=== PATIENT | female | born 1990 | race Caucasian/White ===

== ENCOUNTER 2020-11-15 12:24 | Emergency (ER) | payer OTHER ==
[~2020-11-15] VITALS: Ht 162.6 cm; Wt 82.7 kg
[~2020-11-15 12:24] MED LIST: IBUP-1222 PO; NONE at this time; PREN1TAB60 PO
[2020-11-15] MEDS ORDERED: FLUORESCEIN OPHTHALMIC 1 MG STRIP ONE (13:20)
[2020-11-15] MEDS ORDERED: PROPARACAINE OPHTH 0.5%, 15ML ONE (13:20)
--- NOTE | 2020-11-15 13:36 | NUR ---
WERNER AT [facility] FOR ASSESSMENT. PT WITH NO NEURO DEFICITS. 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 VSS.
[2020-11-15] MEDS ORDERED: FLUORESCEIN OPHTHALMIC 1 MG STRIP EACHEYE ONE (14:00)
[2020-11-15] MEDS ORDERED: PROPARACAINE OPHTH 0.5%, 15ML EACHEYE ONE (14:00)
[2020-11-15 14:03] VITALS: BP 137/85
--- NOTE | 2020-11-15 14:03 | NUR ---
PT OK FOR D/C PER ERMD ORDERS. PT VERBALIZED UNDERSTANDING OF D/C ORDERS.
== END 2020-11-15 14:05 | disposition home or self-care (01) ==
LOC: ED 14:00
DX: H57.04 Mydriasis (principal); R00.0 Tachycardia, unspecified
CPT/HCPCS: 93005; 99283